=== PATIENT | female | born 1950 | race Caucasian/White ===

== ENCOUNTER 2018-11-06 20:08 | Observation (INO) | payer BC ==
[~2018-11-06] VITALS: Ht 162.6 cm; Wt 127.1 kg
[~2018-11-06 20:08] MED LIST: ATEN100T PO; CEPH-443 PO; CEPH500C PO; FLUO20CA38 PO; HCTZ PO; IBUPROFEN; LANT3I SC; LORA-407 PO; LOSA100T3 PO; MTF1000T PO; NOVO3I SC; NPH,100C2 SC; NYST1POW3 MC; OMEG-135 PO; SIMV40TA2 PO
[2018-11-06] MEDS ORDERED: CEFTRIAXONE 1 GM/50 ML (PMX) 50 ML IVPB STA (20:45)
[2018-11-06] MEDS ORDERED: SOD CHLORIDE 0.9% 1,000 ML IV STA (20:45)
[2018-11-06] MEDS ORDERED: morphine 4 MG/ML VIAL IV STA (22:31)
[2018-11-06] MEDS ORDERED: ONDANSETRON 4 MG INJ IV PRN (23:00)
[2018-11-06] MEDS ORDERED: ACETAMINOPHEN 325 MG TAB PO PRN (23:00)
[2018-11-07 01:35] VITALS: BP 142/83; PULSE 103; RESP 18
[2018-11-07] MEDS ORDERED: HYDROCODONE/APAP (5/325) TAB PO PRN (02:00)
[2018-11-07] MEDS ORDERED: ACETAMINOPHEN 325 MG TAB PO PRN (02:00)
[2018-11-07] MEDS ORDERED: GLUCOSE GEL 15 GRAM TUBE PO PRN ×2 (02:30)
[2018-11-07] MEDS ORDERED: DEXTROSE 50% 50 ML SYRINGE IV PRN ×2 (02:30)
[2018-11-07] MEDS ORDERED: GLUCAGON 1 MG INJ IM PRN (02:30)
[2018-11-07] MEDS ORDERED: SOD CHLORIDE 0.9% 1,000 ML IV SCH (02:30)
[2018-11-07] MEDS ORDERED: GLUCOSE GEL 15 GRAM TUBE BUCCAL PRN (02:30)
[2018-11-07 02:37] VITALS: BP_SYST 138; BP_SYST 142; BP_DIAS 76; BP_DIAS 83; PULSE 103; PULSE 90; RESP 18; RESP 19
[2018-11-07 03:51] VITALS: Ht 162.6 cm; Wt 127.1 kg
[2018-11-07 07:37] VITALS: BP 121/59; PULSE 95; RESP 18
[2018-11-07] MEDS ORDERED: INSULIN ASPART [NOVOLOG] 3 ML PEN SC SCH ×2 (07:50→11:30)
[2018-11-07] MEDS ORDERED: INSULIN GLARGINE [LANTus] (100 UNITS/ML) SYG SC SCH (09:00)
[2018-11-07] MEDS ORDERED: LOSARTAN 50 MG TAB PO SCH (09:00)
[2018-11-07] MEDS ORDERED: ATENOLOL 100 MG TAB PO SCH (09:00)
[2018-11-07] MEDS ORDERED: FLUCONAZOLE 150 MG TAB PO ONE (11:00)
[2018-11-07] MEDS ORDERED: CEFTRIAXONE 1 GM/50 ML (PMX) 50 ML IVPB SCH (21:00)
[2018-11-08] MEDS ORDERED: ACCU-CHEK XX SCH (02:00)
== END 2018-11-07 12:58 | disposition home or self-care (01) ==
LOC: E/R 20:08 → MS1 22:36 → INTOOBSV 22:36 → MS1 11-07 02:44
PROVIDERS: ADMIT Internal Medicine; ATTEND Internal Medicine
DX: N39.0 Urinary tract infection, site not specified (principal); I12.9 Hypertensive chronic kidney disease with stage 1 through stage 4 chronic kidney disease, or unspecified chronic kidney disease; E11.22 Type 2 diabetes mellitus with diabetic chronic kidney disease; N18.9 Chronic kidney disease, unspecified; N17.9 Acute kidney failure, unspecified; E11.65 Type 2 diabetes mellitus with hyperglycemia; E66.01 Morbid (severe) obesity due to excess calories; Z68.42 Body mass index [BMI] 45.0-49.9, adult; B37.3 Candidiasis of vulva and vagina; Z85.528 Personal history of other malignant neoplasm of kidney; Z79.4 Long term (current) use of insulin; Z83.3 Family history of diabetes mellitus
CPT/HCPCS: 36415; 80048; 80053; 81001; 82962; 83036; 83690; 85025; 87086; 96374; 99217; 99285; G0378; J0696; J1815; J2270; J2405; J7030